=== PATIENT | female | born 1955 | race Two or more races ===

== ENCOUNTER 2020-04-07 19:41 | Emergency (ER) | payer MEDICAID ==
[~2020-04-07] VITALS: Ht 157.5 cm; Wt 104.3 kg
[2020-04-07 20:13] VITALS: BP 190/98
--- NOTE | 2020-04-07 20:20 | NUR ---
PT CAME TO THE ED FOR C/O R FOOT BUMP AND PAIN X 6 HRS. DENIES ANY FALL, NO INJURY. PT AAOX4, NO ACUTE DISTRESS NOTED. PT CONNECTED TO THE MONITOR AND POX.
--- NOTE | 2020-04-07 21:51 | NUR ---
Patient discharged to home in stable condition. Written and verbal after care instructions given. Patient verbalizes understanding of instruction.pt. ambulatory with a steady gait
== END 2020-04-07 21:51 | disposition home or self-care (01) ==
LOC: ER 19:50
DX: S90.861A Insect bite (nonvenomous), right foot, initial encounter (principal); I10 Essential (primary) hypertension; Z98.890 Other specified postprocedural states; W57.XXXA Bitten or stung by nonvenomous insect and other nonvenomous arthropods, initial encounter; Y93.89 Activity, other specified; Y92.89 Other specified places as the place of occurrence of the external cause; Y99.8 Other external cause status